=== PATIENT | male | born 1995 | race Hispanic/Latino ===

== ENCOUNTER 2016-11-09 02:25 | Emergency (ER) | payer OTHER ==
[~2016-11-09] VITALS: Ht 180.3 cm; Wt 81.8 kg
[~2016-11-09 02:25] MED LIST: ALBU8.5H4 IH
[2016-11-09 02:39] VITALS: BP 156/90; PULSE 129; RESP 18; O2SAT 99
--- NOTE | 2016-11-09 02:45 | ED.REPORT ---
HPI-General Illness Date of Service Nov 09, 2016 ED Provider: Dr. Lee Okeefe M.D. A 21 year old male with a history of asthma presents to the ED with intermittent palpitations onset this evening. Last night the patient drank a lot of alcohol and smoked what he thought was marijuana. Later he learned that the marijuana may have been laced with some other unknown drug. Today the patient felt drowsy but otherwise normal. He began feeling anxious while researching drugs just prior to arrival. Nursing Notes Stated Complaint: RAPID HEART BEAT Chief Complaint: General Complaint Nursing Notes Reviewed: Yes Allergies: Coded Allergies: No Known Allergies (Unverified , 11/09/16) Scheduled PRN Albuterol HFA (Albuterol HFA) 8.5 Gm Hfa.aer.ad 1 PUFF IH Q4 PRN PRN For Wheezing General Time Seen by MD: 02:44 Chief Complaint Other (Palpitations) Hx Obtained From: Patient Arrived By: Walk-in Sudden in Onset?: Yes Onset Occurred: 1 - 4 hours ago Symptom Duration: Intermittent Severity: Current: No pain currently Severity: Maximum: No pain Associated with: Denies: Fever Pertinent Negative: Relieved by nothing Context Related History: Reports Asthma Recent Healthcare: No recent doctor visit Similar Sx Previous: No Past Medical History Past Medical History Reports: Asthma Past Surgical History None reported Smoking History Never Smoker Social History Alcohol Use: "Social" Drug Use: THC Other Social History: Lives with parents Occupation school, out for the holidays Ambulatory Status Independent Review of Systems Full Review of Systems Constitutional: Denies: Fever Respiratory: Denies: Non-productive cough, Shortness of breath Cardiovascular: Reports: Palpitations GI: Denies: Diarrhea, Vomiting Psychiatric: Reports: Anxiety Complete sys rev & neg: except as marked. Physical Exam Vital Signs Vital Signs Date Time Temp Pulse Resp B/P Pulse Ox O2 Delivery O2 Flow Rate FiO2 11/09/16 03:53 36.6 90 16 137/93 99 Room Air 11/09/16 02:39 36.7 129 18 156/90 99 Room Air Initial VS: Reviewed Head / Eyes: Atraumatic, Normocephalic ENT: Conjunctiva normal, No scleral icterus Neck: Supple, Full range of motion Respiratory: Breath sounds normal, Clear to auscultation, No respiratory distress Cardiovascular: Regular rate & rhythm, Heart sounds normal Abdomen / GI: Soft, Non-tender Skin: Warm, Dry, No cyanosis Neurologic: Alert, Oriented, Nonfocal General/Constitutional: Awake, Alert, No acute distress Behavior: Positive: Anxious Psychiatric: Cognitive function NL, Judgment/insight NL Abnormal Mood/Affect: Positive: Anxious Interpretation & Diagnostics URINE DRUG SCREEN: + Cocaine + Methamphetamine + Amphetamines Otherwise Negative Lab Results Interpretation Result Diagram: 11/09/16 0330 11/09/16 0330 Test 11/09/16 03:15 11/09/16 03:30 Hold Urine Received (Received) White Blood Count 8.2th/mm3 (3.8-10.1) Red Blood Count 5.06mil/mm3 (4.40-5.80) Hemoglobin 15.1g/dL (13.8-17.2) Hematocrit 44.9% (41.0-50.0) Mean Corpuscular Volume 88.7fL (81-100) Mean Corpuscular Hemoglobin 29.8pg (27.0-35.0) Mean Corpuscular Hemoglobin Concent 33.6% (32.0-37.0) Red Cell Distribution Width 13.5% (12.3-15.4) Platelet Count 303bil/L (150-400) Sodium Level 138mEq/L (134-144) Potassium Level 4.2mEq/L (3.5-5.2) Chloride Level 98mEq/L (97-108) Carbon Dioxide Level 25mmol/L (18-29) Blood Urea Nitrogen 11mg/dL (6-20) Creatinine 0.93mg/dL (0.76-1.27) Estimat Glomerular Filtration Rate 109mL/min (>59) Glucose Level 121mg/dL (60-99) Calcium Level 9.7mg/dL (8.5-10.1) Total Bilirubin 0.7mg/dL (0.0-1.2) Aspartate Amino Transf (AST/SGOT) 26U/L (0-50) Alanine Aminotransferase (ALT/SGPT) 15U/L (0-44) Alkaline Phosphatase 97U/L (25-150) Total Protein 8.3g/dL (6.4-8.4) Albumin 5.0g/dL (3.4-5.0) Hold Carter Top Tube Received (Received) Alcohol, Quantitative < 10mg/dL (0-10) ECG Interpretation ECG Interpretation: Sinus rhythm rate 98 Time: 02:53 Interpreted by: ED physician Re-Eval/Medical Decision Med Decision/Clinical Course 21-year-old male presents with anxiety after ingesting marijuana laced with methamphetamine apparently. He denies using methamphetamine otherwise. He deathly has not in his urine. He is more than twelve hours out from his ingestion, and hemodynamically stable. No indication for intervention. Discharged in stable condition. Cautioned to avoid drug use. Source of Hx: Old records Time of Eval: 03:49 Patient Status: Condition improved Re-Evaluation/Progress Note: Discussed with patient lab results, diagnosis, and plan for discharge. Follow-up and return to the ER instructions given. Patient agrees with plan for care and all questions were addressed. Counseled Regarding: Diagnosis, Lab results, Need for follow-up, When/why to return to ED Discharge & Departure Primary Impression: Methamphetamine abuse Additional Impressions: Alcohol intoxication Marijuana use Disposition: Home Discharge Condition All VS Reviewed: Yes Condition: Improved Patient Instructions: Methamphetamine Abuse (ED) Additional Instructions: You have methamphetamine in your urine. That may account for some of your symptoms. There is no reason to suspect dangerous consequences, although I do not suggest to continue using methamphetamine. Follow-up with your doctor in the office. Return if any immediate issues. Referrals: Maria M Castañeda MD (PCP) Eviibidania Attestation Portions of this note were transcribed by Yaritza Crespo. I, Dr. Okeefe, personally performed the history, physical exam, and medical decision-making; I reviewed and confirmed the accuracy of the information in the transcribed note. Signed by: Danita Dalal, 11/09/2016, 04:04 copies to: Maria M Castañeda MD, Christopher W MD Nov 09, 2016 02:45 YARITZA CRESPO Nov 09, 2016 02:52
[2016-11-09 03:47] LABS: Mean Corpuscular Hemoglobin 29.8 pg (27.0-35.0); Mean Corpuscular Volume 88.7 fL (81-100)
[2016-11-09 03:53] VITALS: BP 137/93; PULSE 90; RESP 16; O2SAT 99
== END 2016-11-09 03:54 | disposition home or self-care (01) ==
LOC: SED 02:25
DX: F15.10 Other stimulant abuse, uncomplicated (principal); F10.129 Alcohol abuse with intoxication, unspecified; F12.10 Cannabis abuse, uncomplicated; J45.909 Unspecified asthma, uncomplicated
CPT/HCPCS: 36415; 80053; 85027; 93005; 99284; G0480

== ENCOUNTER 2016-11-14 11:34 | Emergency (ER) | payer OTHER ==
[~2016-11-14] VITALS: Ht 180.3 cm; Wt 84.1 kg
[2016-11-14 11:35] VITALS: BP 150/86; PULSE 68; RESP 14; O2SAT 100
--- NOTE | 2016-11-14 11:42 | ED.REPORT ---
HPI-Extremity Problem Upper Date of Service Nov 14, 2016 ED Provider: Dr. Danielson A right-handed 21 year old male with a history of asthma presents to the ED complaining of left arm swelling onset earlier today. The patient visited the ED 5 days ago with heart palpitations where he had blood drawn. The arm became sore and "hard" immediately following the blood draw, but is now swelling. Nursing Notes Stated Complaint: PAIN WHERE BLOOD WAS DRAWN AND BRUISING Chief Complaint: Extremity Trauma Allergies: Coded Allergies: No Known Allergies (Unverified , 11/14/16) Scheduled PRN Albuterol HFA (Albuterol HFA) 8.5 Gm Hfa.aer.ad 1 PUFF IH Q4 PRN PRN For Wheezing General Time Seen by MD: 11:42 Chief Complaint Forearm injury left (Swelling) Hx Obtained From: Patient Arrived By: Walk-in Onset Occurred: 1 - 4 hours ago Symptom Duration: Since onset Location: : Forearm left Severity: Current: Mild Severity: Maximum: Mild Recent Healthcare: Recent doctor visit (Visited ED 5 days ago for heart palpitations) Similar Sx Previous: No Past Medical History Past Medical History Reports: Asthma Past Surgical History None reported Smoking History Never Smoker Social History Alcohol Use: "Social" Drug Use: THC Other Social History: Lives with parents Occupation school, out for the holidays Ambulatory Status Independent Review of Systems Constitutional: Denies: Chills, Fever Musculoskeletal: Reports: Extremity swelling (Left arm.) Complete sys rev & neg: except as marked. Respiratory: Denies: Non-productive cough Cardiovascular: Denies: Chest pain GI: Denies: Abdominal pain Physical Exam Physical Exam Notes: Initial Vital Signs Vital Signs (First) Date Time Temp Pulse Resp B/P Pulse Ox O2 Delivery O2 Flow Rate FiO2 11/14/16 11:35 36.2 68 14 150/86 100 Initial VS: Reviewed General/Constitutional: Awake, Alert, No acute distress, Well developed Neck: Atraumatic, Full range of motion Respiratory / Chest: Atraumatic, Breath sounds NL, Breath sounds = bilat, No respiratory distress, No rales, No rhonchi, No wheezing Cardiovascular: Heart rate NL, Regular rhythm, Heart sounds NL, No gallop, No murmurs, No rubs radial and ulnar pulses intact Upper Extremity / MS: Full range of motion Left Forearm: Positive: Ecchymosis present (radial ecchymosis to left forearm. ), Swelling present... (Mild) 10 cm area of ecchymosis over left antecubital fossa. Left arm is neurologically intact with no warmth and no palpable hematoma. No lymphangitic streaking. Skin: Atraumatic, No rash, Dry Neurologic: Oriented X3, No motor deficits, No sensory deficits Head / Eyes: Atraumatic, Normocephalic, PERRL, EOMI ENT: Atraumatic, Airway patent, Mucous membranes moist Abdomen: Atraumatic, No guarding, No rebound Back: Atraumatic, Full range of motion Lower Extremity / Pelvis / MS: Atraumatic, Full range of motion Re-Eval/Medical Decision Source of Hx: Old records Re-Evaluation/Progress : Time of Eval: 11:42 Re-Evaluation/Progress Note: Discussed plans for discharge. All questions addressed. Patient understands and accepts the plan. Counseled Regarding: Diagnosis, Need for follow-up, When/why to return to ED Discharge & Departure Impression: Primary Impression: Traumatic ecchymosis of left upper arm Encounter type: initial encounter Qualified Code: S40.022A - Contusion of left upper arm, initial encounter Disposition: Home Discharge Condition All VS Reviewed: Yes Condition: Stable Additional Instructions: This is a large bruise as a result of a blood draw several days ago. it will resolve over time. Warm packs to this area will help speed recovery. If using a heating pad, keep it on low. Use ibuprofen 600 mg 3-4 times a day for pain. Elevate arm when able. Referrals: Maria M Castañeda MD (PCP) Scribe Attestation Portions of this note were transcribed by Sonny Clarke and Arben Greco. I, Dr. Danielson personally performed the history, physical exam and medical decision- making; I reviewed and confirmed the accuracy of the information in the transcribed note. Signed by: Sonny Clarke and Danita Nielsen, 2016 and 1302. copies to: Maria M Castañeda MD, Donald L MD Nov 14, 2016 11:42 Sonny Clarke Nov 14, 2016 11:48 ARBEN GRECO Nov 14, 2016 13:03
== END 2016-11-14 12:30 | disposition home or self-care (01) ==
LOC: SED 11:34
DX: S40.022A Contusion of left upper arm, initial encounter (principal); W46.0XXA Contact with hypodermic needle, initial encounter; Y92.238 Other place in hospital as the place of occurrence of the external cause; Y93.89 Activity, other specified; Y99.8 Other external cause status; J45.909 Unspecified asthma, uncomplicated